=== PATIENT | male | born 1950 | race Caucasian/White ===

== ENCOUNTER → 2016-12-12 | Outpatient (CLI) | payer OTHER ==
--- NOTE | 2016-12-12 11:09 | CONS ---
DATE OF CONSULTATION: 12/12/2016 CONSULTATION/NEW PATIENT EVALUATION A 66-year-old gentleman who has been evaluated in the sleep center for possible obstructive sleep apnea-hypopnea syndrome. HISTORY OF PRESENT ILLNESS/SLEEP-WAKE EVALUATION: SLEEP SCHEDULE: Patient's usual sleep schedule from around 9:30 to 10 p.m. until 6 a.m. FALLING ASLEEP: Some he has problem with falling asleep, using Ambien 10 mg at bedtime on p.r.n. basis. DURING SLEEP: During the night, according to his , he snores and has episodes of stopped breathing during the sleep. He wakes up from sleep up to 6 times with 2 episodes of nocturia even if he is taking his Ambien. DURING THE DAY/WAKE STATE: In the morning he wakes up tired. He feels sleepy during the day. [place] Sleepiness Scale significantly increased to 14. He takes nap once a day at noon time even after taking 2 coffees in the morning. He sleeps in different positions. He has a TV set in bedroom. Moving during the sleep. No history of hypnagogic hallucinations, sleep paralysis or cataplexy. PAST MEDICAL HISTORY: Positive for hypertension, hyperlipidemia, facial nerve problems with several surgeries related to that, basal cell carcinoma of the face, have been removed from the right side of the nose several times. PAST SURGICAL HISTORY: Bilateral total shoulder replacement. SOCIAL HISTORY: Negative for smoking. Alcohol consumption occasional. MEDICATIONS: Baby aspirin, lisinopril hydrochlorothiazide, atorvastatin, zolpidem. REVIEW OF SYSTEMS: Positive for excessive daytime sleepiness, multiple awakenings from sleep, asymmetry of his face. No fevers. No double vision. No recent chest pain. No shortness of breath. No abdominal pain. No bleeding episodes. No blood in urine. No seizure episodes. FAMILY HISTORY: Hypertension, heart problems, hyperlipidemia, cancer. PHYSICAL EXAMINATION: During physical exam, a gentleman without distress. VITAL SIGNS: BP 134/77, HR 74, RR 16. Height 5 feet 10 inches. Weight 280. BMI 40. Neck 19 inches in circumference. Temperature 98.7, oxygen saturation at room air 95%. HEENT: PERRLA, EOMI. Evaluation of oropharynx low position of soft palate. Nose asymmetric, possibly nasal septum deviation. Slight restriction of nasal breathing. Some asymmetry of the face NECK: Supple. No JVD. Thyroid is not palpable. LUNGS: Clear to percussion and to auscultation. Good air exchange. No wheezing or rhonchi. HEART: S1, S2 regular. No murmurs, gallops or rubs. ABDOMEN: Obese. EXTREMITIES: No clubbing or cyanosis. CONSULTING IT ARCHITECT: Awake, alert, and oriented x3. Cranial nerves 2 to 7 intact. There is no fasciculation or atrophy noted. No focal deficits observed. IMPRESSION: 1. Snoring, witnessed episodes of stopped breathing during sleep, low position of soft palate, multiple awakenings from sleep with nocturia, excessive daytime sleepiness, [place] Sleepiness Scale increased to 14, big neck, obstructive sleep apnea-hypopnea syndrome. 2. Hypertension. 3. Hyperlipidemia. 4. Difficulties to initiate sleep psychophysiological insomnia. 5. History of microvascular depression of facial nerve. 6. Status post basal cell carcinoma of face skin removed several times. 7. Obesity, body mass index 40. 8. Status post appendectomy. 9. Status post bilateral shoulder replacement. PLAN: 1. Polysomnography for evaluation of patient's breathing during sleep. 2. CPAP/BiPAP titration if sleep study confirms obstructive sleep apnea-hypopnea syndrome. 3. Preferable position during sleep on the side. 4. No driving if patient feels any sleepiness. Patient is aware of civil and criminal liability for unsafe driving. 5. I will see patient for follow-up visit to explain results of the testing and following plan. Thank you very much for referring this patient for consultation. Sincerely, Arturo Eddy MD, PhD, FAASM. Diplomat of [place] [employer], Sleep Medicine Board by [place] [employer] [place] [employer] Housing Coordinator of [facility] [place]
== END | disposition home or self-care (01) ==
LOC: SLEEP 09:50
PROVIDERS: ATTEND Internal Medicine
DX: G47.33 Obstructive sleep apnea (adult) (pediatric) (principal); I10 Essential (primary) hypertension; E78.5 Hyperlipidemia, unspecified; E66.9 Obesity, unspecified; Z68.41 Body mass index [BMI] 40.0-44.9, adult; Z98.890 Other specified postprocedural states; Z96.612 Presence of left artificial shoulder joint; Z96.611 Presence of right artificial shoulder joint; Z85.828 Personal history of other malignant neoplasm of skin
CPT/HCPCS: 99211

== ENCOUNTER → 2021-09-07 | Outpatient (CLI) | payer OTHER ==
--- NOTE | 2021-09-08 02:06 | MR ---
EXAMINATION TYPE: MR lumbar spine wo con DATE OF EXAM: 09/07/2021 COMPARISON: None HISTORY: LBP, LLE radiculopathy. Multiplanar multiecho imaging of the lumbar spine without contrast. Normal alignment. There is narrowing of L4-5 disc space. There is no compression fracture. The other disc spaces are normal. There is mild posterior and anterior disc herniations at L4-5. There is devel opmentally adequate spinal canal. No spinal stenosis. There is some hypertrophic facet arthropathy at L4-5. There is some facet arthropathy and mild neural foraminal narrowing bilaterally at L5-S1. Ther e is no lumbar paraspinal mass. IMPRESSION: Spondylosis at L4-5. No spinal stenosis. Mild neural foraminal narrowing at L5 5 S1. No fracture.
== END | disposition home or self-care (01) ==
LOC: RADMRIMAIN 18:46
PROVIDERS: ATTEND Orthopaedic Surgery
DX: M47.26 Other spondylosis with radiculopathy, lumbar region (principal)
CPT/HCPCS: 72148

== ENCOUNTER 2021-12-07 11:12 | Emergency (ER) | payer OTHER ==
[2021-12-07] MEDS ORDERED: SODIUM CHLORIDE 0.9% 500 ML 500 ML IV STA (13:41)
--- NOTE | 2021-12-07 13:46 | ED ---
General Adult HPI - General Chief complaint: Chest Pain Stated complaint: Chest Pain, Shoulder Pain Time Seen by Provider: 12/07/21 12:59 Source: patient, family Mode of arrival: wheelchair Limitations: no limitations - History of Present Illness Initial comments: Dictation was produced using [employer] dictation software. please excuse any grammatical, word or spelling errors. Chief Complaint: Patient is a 71-year-old male presents to the emergency department for cardiac workup History of Present Illness: Patient is 71-year-old male he presents to the emergency department for concerns of cardiac workup. For the last 2 weeks she's been having shoulder pain and left upper extremity rash. He was seen at urgent cares and at the [facility]. He had prescriptions provided for him for prednisone, analgesics. He was seen again today at the [facility] and was told to come to the [facility] department for cardiac workup. Patient denies any chest pain. States his pain is in his left shoulder left trapezius area. He also has some numbness in his hand. 2 weeks ago he hurt his shoulder doesn't recall how. One week after that patient started to develop a rash. The ROS documented in this emergency department record has been reviewed and confirmed by me. Those systems with pertinent positive or negative responses have been documented in the HPI. All other systems are other negative and/or noncontributory. PHYSICAL EXAM: General Impression: Alert and oriented x3, not in acute distress HEENT: Normocephalic atraumatic, extra-ocular movements intact, pupils equal and reactive to light bilaterally, mucous membranes moist. Cardiovascular: Heart regular rate and rhythm Chest: Able to complete full sentences, no retractions, no tachypnea Abdomen: abdomen soft, non-tender, non-distended, no organomegaly Musculoskeletal: Pulses present and equal in all extremities, no peripheral edema Motor: no focal deficits noted Neurological: CN II-XII grossly intact, no focal motor or sensory deficits noted Skin: Dermatomal distribution, bolus and erythematous rash to the left trapezius extending down to the left posterior arm in a C7 or C6 dermatomal pattern Psych: Normal affect and mood ED course: 71-year-old male presents to the emergency Department from urgent care. Patient was told to come to the ER to get cardiac workup for persistent shoulder pain. Patient is any chest pain. As upon arrival are within acceptable limits. Patient is well-appearing. EKG does not show any signs of ischemia or infarction. at the bedside insistent on patient receiving IV fluids. Patient is a rash that's consistent with herpes zoster. Laboratory evaluation obtained. CBC, coags, metabolic panel within acceptable limits. Troponin is negative. Patient with discharge. Patient is advised to follow up closely with his prior care doctor. Patient prescription for valacyclovir EKG interpretation: Ventricular rate an 10, sinus tachycardia, OR interval 164, QS 93, QTc 385. No OR prolongation, no QTC prolongation, no ST or T-wave changes noted. Overall, this EKG is unremarkable - Related Data Home Medications Medication Instructions Recorded Confirmed Lisinopril-Hctz 10-12.5 mg 1 tab PO HS 02/01/16 12/07/21 [Zestoretic 10-12.5] Aspirin [Adult Low Dose Aspirin EC] 81 mg PO HS 04/26/16 12/07/21 Atorvastatin [Lipitor] 40 mg PO HS 12/07/21 12/07/21 Cholecalciferol [Vitamin D3 (125 125 mcg PO HS 12/07/21 12/07/21 Mcg = 5000 Iu)] Lidocaine 5% Oint [Xylocaine 5% 1 applic TOPICAL QID PRN 12/07/21 12/07/21 Oint] Previous Rx's Medication Instructions Recorded valACYclovir [Valtrex] 1,000 mg PO TID 7 Days #14 tab 12/07/21 Allergies Allergy/AdvReac Type Severity Reaction Status Date / Time No Known Allergies Allergy Verified 12/07/21 14:06 Review of Systems ROS Statement: Those systems with pertinent positive or pertinent negative responses have been documented in the HPI. ROS Other: All systems not noted in ROS Statement are negative. Past Medical History Past Medical History: Hypertension Additional Past Medical History / Comment(s): HX MICRO COMPRESSION OF FACIAL NERVE ON ONE SIDE History of Any Multi-Drug Resistant Organisms: None Reported Past Surgical History: Appendectomy, Joint Replacement, Orthopedic Surgery Additional Past Surgical History / Comment(s): BRAIN SX,HECTOR SHOULDER REPLACEMENT,WRIST OR Past Anesthesia/Blood Transfusion Reactions: No Reported Reaction Past Psychological History: No Psychological Hx Reported Smoking Status: Never smoker Past Alcohol Use History: Heavy - Past Family History Brother(s) Family Medical History: Cancer Additional Family Medical History / Comment(s): LUNG Father Family Medical History: Cancer Mother Family Medical History: Cancer General Exam Limitations: no limitations Course Vital Signs 12/07/21 12/07/21 11:17 13:54 Temperature 97.9 F Pulse Rate 113 H 85 Respiratory 18 18 Rate Blood Pressure 138/94 117/74 O2 Sat by Pulse 94 L 94 L Oximetry Medical Decision Making - Lab Data Result diagrams: 12/07/21 13:37 12/07/21 12:45 Lab Results 12/07/21 12/07/21 12/07/21 Range/Units 12:45 12:45 13:37 WBC 10.9 H (3.8-10.6) k/uL RBC 5.18 (4.30-5.90) m/uL Hgb 16.2 (13.0-17.5) gm/dL Hct 48.7 (39.0-53.0) % MCV 94.1 (80.0-100.0) fL MCH 31.3 (25.0-35.0) pg MCHC 33.3 (31.0-37.0) g/dL RDW 13.7 (11.5-15.5) % Plt Count 287 (150-450) k/uL MPV 7.3 Neutrophils % 84 % Lymphocytes % 8 % Monocytes % 6 % Eosinophils % 1 % Basophils % 0 % Neutrophils # 9.1 H (1.3-7.7) k/uL Lymphocytes # 0.8 L (1.0-4.8) k/uL Monocytes # 0.6 (0-1.0) k/uL Eosinophils # 0.1 (0-0.7) k/uL Basophils # 0.0 (0-0.2) k/uL PT (9.0-12.0) sec INR (<1.2) APTT (22.0-30.0) sec Sodium 135 L (137-145) mmol/L Potassium 4.4 (3.5-5.1) mmol/L Chloride 103 (98-107) mmol/L Carbon Dioxide 18 L (22-30) mmol/L Anion Gap 14 mmol/L BUN 33 H (9-20) mg/dL Creatinine 1.09 (0.66-1.25) mg/dL Est GFR (CKD-EPI)AfAm 79 (>60 ml/min/1.73 sqM) Est GFR (CKD-EPI)NonAf 68 (>60 ml/min/1.73 sqM) Glucose 165 H (74-99) mg/dL Calcium 9.5 (8.4-10.2) mg/dL Magnesium 1.9 (1.6-2.3) mg/dL Total Bilirubin 1.0 (0.2-1.3) mg/dL AST 39 (17-59) U/L ALT 51 H (4-49) U/L Alkaline Phosphatase 67 (38-126) U/L Troponin I <0.012 (0.000-0.034) ng/mL Total Protein 7.7 (6.3-8.2) g/dL Albumin 4.7 (3.5-5.0) g/dL 12/07/21 Range/Units 13:37 WBC (3.8-10.6) k/uL RBC (4.30-5.90) m/uL Hgb (13.0-17.5) gm/dL Hct (39.0-53.0) % MCV (80.0-100.0) fL MCH (25.0-35.0) pg MCHC (31.0-37.0) g/dL RDW (11.5-15.5) % Plt Count (150-450) k/uL MPV Neutrophils % % Lymphocytes % % Monocytes % % Eosinophils % % Basophils % % Neutrophils # (1.3-7.7) k/uL Lymphocytes # (1.0-4.8) k/uL Monocytes # (0-1.0) k/uL Eosinophils # (0-0.7) k/uL Basophils # (0-0.2) k/uL PT 10.2 (9.0-12.0) sec INR 0.9 (<1.2) APTT 22.0 (22.0-30.0) sec Sodium (137-145) mmol/L Potassium (3.5-5.1) mmol/L Chloride (98-107) mmol/L Carbon Dioxide (22-30) mmol/L Anion Gap mmol/L BUN (9-20) mg/dL Creatinine (0.66-1.25) mg/dL Est GFR (CKD-EPI)AfAm (>60 ml/min/1.73 sqM) Est GFR (CKD-EPI)NonAf (>60 ml/min/1.73 sqM) Glucose (74-99) mg/dL Calcium (8.4-10.2) mg/dL Magnesium (1.6-2.3) mg/dL Total Bilirubin (0.2-1.3) mg/dL AST (17-59) U/L ALT (4-49) U/L Alkaline Phosphatase (38-126) U/L Troponin I (0.000-0.034) ng/mL Total Protein (6.3-8.2) g/dL Albumin (3.5-5.0) g/dL Disposition Clinical Impression: [place] Disposition: HOME SELF-CARE Condition: Fair Instructions (If sedation given, give patient instructions): [facility] (ED) Prescriptions: valACYclovir [Valtrex] 1,000 mg PO TID 7 Days #14 tab Is patient prescribed a controlled substance at d/c from ED?: No Referrals: [facility],Clinic [Primary Care Provider] - 1-2 days
[2021-12-07 13:52] LABS: Albumin 4.7 g/dL (3.5-5.0); Calcium 9.5 mg/dL (8.4-10.2); Magnesium 1.9 mg/dL (1.6-2.3); Potassium 4.4 mmol/L (3.5-5.1); Total Protein 7.7 g/dL (6.3-8.2)
[2021-12-07 14:10] LABS: Basophils % (A) 0 %; Eosinophils # (A) 0.1 k/uL (0-0.7); Eosinophils % (A) 1 %; HCT 48.7 % (39.0-53.0); HGB 16.2 gm/dL (13.0-17.5); Lymphocytes # (A) 0.8 k/uL (1.0-4.8); Lymphocytes % (A) 8 %; MCH 31.3 pg (25.0-35.0); MCHC 33.3 g/dL (31.0-37.0); MCV 94.1 fL (80.0-100.0); Mean Platelet Volume 7.3; Monocytes # (A) 0.6 k/uL (0-1.0); Monocytes % (A) 6 %; Neutrophils # (A) 9.1 k/uL (1.3-7.7); Neutrophils % (A) 84 %; Platelet Count 287 k/uL (150-450); RBC 5.18 m/uL (4.30-5.90); RDW 13.7 % (11.5-15.5); WBC 10.9 k/uL (3.8-10.6)
[2021-12-07 14:25] LABS: INR 0.9 (<1.2); Prothrombin Time 10.2 sec (9.0-12.0)
--- NOTE | 2021-12-07 14:27 | XR ---
EXAMINATION TYPE: XR chest 2V DATE OF EXAM: 12/07/2021 COMPARISON: 06/07/2015 TECHNIQUE: PA and lateral views submitted. HISTORY: Chest pain FINDINGS: Subsegmental changes left lung base. No pleural effusion or pneumothorax. Heart size normal. Hypertro phic and degenerative change of the spine. Postsurgical change involving the shoulders. No pneumothor ax. IMPRESSION: 1. Left lower lobe atelectasis favored over pneumonia.
[2021-12-07 15:13] VITALS: BP 117/92; PULSE 77; RESP 16; TEMP 98.8
== END 2021-12-07 15:13 | disposition home or self-care (01) ==
LOC: EC 11:12
DX: B02.9 Zoster without complications (principal); R07.9 Chest pain, unspecified; I10 Essential (primary) hypertension; Z79.899 Other long term (current) drug therapy
CPT/HCPCS: 36415; 71046; 80053; 83735; 84484; 85025; 85610; 85730; 93005; 96360; 99285

== ENCOUNTER → 2023-05-09 | Outpatient (CLI) | payer OTHER ==
--- NOTE | 2023-05-12 10:14 | MR ---
EXAMINATION TYPE: MR Prostate wo/w con DATE OF EXAM: 05/09/2023 9:26 AM COMPARISON: None. CLINICAL INDICATION:Male, 73 years old with history of R97.20 ELEVATED PROSTATE SPECIFIC ANTIGEN; Jazz vated PSA TECHNIQUE: Multi-planar, multi-sequence imaging of the pelvis is performed prior to and following the uncomplicated administration of bolus intravenous gadolinium. CONTRAST: 11.5 Gadavist Interpretive Criteria: PI-RADS v2.1 SERUM PSA: 6.8 on 04/09/2023. SURGICAL PATHOLOGY: No data available. FINDINGS: Prostatic dimensions: 5.2 x 4.1 x 3.2 cm. "Bullet" Volume:44.65 (PSA density=0.15 ng/mL/mL) CENTRAL GLAND (Central and Transition Zones/CZ+TZ): Multiple bilateral, heterogenous appearing hypertrophic stromal nodules, without suspicious lesion. ( PI-RADS 2) PERIPHERAL ZONE (PZ): Bilateral linear, indistinct wedgelike areas of low ADC, and low T2 signal, No evidence of masslike a bnormality, or localized perfusional hypervascularity, to further suggest a focus of clinically signi ficant prostate cancer. (PI-RADS 2) SEMINAL VESICLES (SV): Symmetric and unremarkable. PERIPROSTATIC TISSUES: Unremarkable. LYMPH NODES: No enlarged pelvic lymph node. REMAINING PELVIS: Bladder wall is within normal limits given distention. No abnormal free or organized intrapelvic fluid collection. No pathologic bowel dilation or mural thickening. Right inguinal hernia containing that right testis. Fat-containing left inguinal hernia. OSSEOUS STRUCTURES: No suspicious osseous abnormality. IMPRESSION: 1. No specific features for high-risk prostate cancer. Maximum PI-RADS score: 2. 2. Mild BPH, estimated gland volume 44.65 mL.
== END | disposition home or self-care (01) ==
LOC: RADMRIMAIN 07:49
PROVIDERS: ATTEND Urology
DX: N40.0 Benign prostatic hyperplasia without lower urinary tract symptoms (principal); R97.20 Elevated prostate specific antigen [PSA]
CPT/HCPCS: 72197; A9585

== ENCOUNTER → 2024-07-14 | Outpatient (CLI) | payer OTHER ==
--- NOTE | 2024-07-14 09:39 | MR ---
EXAMINATION TYPE: MR Prostate wo/w con DATE OF EXAM: 07/14/2024 8:25 AM COMPARISON: 05/26/2023 CLINICAL INDICATION: Male, 74 years old with history of C61 PROSTATE CX; prostate ca TECHNIQUE: Multi-planar, multi-sequence imaging of the pelvis is performed prior to and following the uncomplicated administration of bolus intravenous gadolinium. IV Contrast: 11 mL Gadobutrol Interpretive Criteria: PI-RADS v2.1 SERUM PSA: 01/2024=7.48 03/2024=9.25 SURGICAL PATHOLOGY: Biopsy 06/09/2024 positive. FINDINGS: Prostatic dimensions: 5.0 x 5.0 x 3.4 cm. "Bullet" Volume:55.63 (PSA density=0.17 ng/mL/mL) CENTRAL GLAND (Central and Transition Zones/CZ+TZ): Multiple bilateral, heterogenous appearing hypertrophic stromal nodules, without suspicious lesion. M edian lobe hypertrophy with protrusion into the base of the bladder. (PI-RADS 2) PERIPHERAL ZONE (PZ): Intrinsic high T1 signal seen throughout the peripheral zone bilaterally possibly secondary to sequel a prior biopsy. Diffuse low T2/higher T1 signal throughout the peripheral zone unclear if there is in jection malfunction. The right peripheral gland somewhat T2 low signal (PI-RADS 3) SEMINAL VESICLES (SV): Symmetric and unremarkable. PERIPROSTATIC TISSUES: Unremarkable. LYMPH NODES: No enlarged pelvic lymph node. REMAINING PELVIS: Bladder wall is within normal limits given distention. No abnormal free or organized intrapelvic fluid collection. No pathologic bowel dilation or mural thickening. No hernia visualized Fatty changes to the inguinal canals with right testis in the right inguinal canal. OSSEOUS STRUCTURES: No suspicious osseous abnormality. IMPRESSION: 1. Diffuse low T2/higher T1 signal throughout the right peripheral zone without associated. Maximum P I-RADS score: 3 by imaging criteria. Findings correlate with area of the positive biopsy. 2. Moderate BPH, estimated gland volume 55.63 mL. 3. No suspicious osseous lesion. No lymphadenopathy. No evidence of prostate adenocarcinoma involving the periprostatic tissues. 4. Fatty changes to the inguinal canals with right testis in the right inguinal canal. [facility], , 07/14/2024 9:37 AM
== END | disposition home or self-care (01) ==
LOC: RADMRIMAIN 06:49
PROVIDERS: ATTEND Urology
DX: N40.0 Benign prostatic hyperplasia without lower urinary tract symptoms (principal); N50.89 Other specified disorders of the male genital organs
CPT/HCPCS: 72197; A9585

== ENCOUNTER → 2024-08-05 | Outpatient (CLI) | payer OTHER ==
--- NOTE | 2024-08-08 21:23 | PE ---
EXAMINATION TYPE: PET CT fusion skull to thigh DATE OF EXAM: 08/06/2024 COMPARISON: MRI 07/14/2024 Prior PET/CT: No prior PET/CT at this location CLINICAL INDICATION: Male, 74 years old with history of C61 Prostate CA, TECHNIQUE: Following the intravenous administration of 6.40 mCi of Gallium-68 labeled PSMA, whole latanya dy images are performed from the skull base to the midthigh. Images are reviewed on the computer in the coronal, axial, and sagittal planes. Reconstructed rotating images are created on [employer] and reviewed on the computer. A localization and attenuation correction CT is performed i n conjunction with the PET scan. DLP: 1147.87 mGycm SCAN: Subsequent FINDINGS: NECK: There is normal radiotracer distribution through salivary glands. No suspicious uptake THORAX: No suspicious uptake ABDOMEN:There is normal radiotracer excretion through the renal collecting system. Normal uptake wit hin the liver and spleen. PELVIS: No suspicious uptake. Urinary bladder fills with contrast renal excretion. Tiny amount of right posterior prostate uptake may be present. This may be the patient's primary, exa mple image 268, SUV 14.6 OSSEOUS STRUCTURES: No suspicious uptake LOCALIZATION CT: No significant interval finding COMPARISON: The posterior right prostate uptake may be the region indicated by MRI IMPRESSION: 1. No suspicious changes to suggest metastatic disease. 2. Possible prostate primary may be along the right posterior margin. [facility], , 08/08/2024 9:21 PM
== END | disposition home or self-care (01) ==
LOC: RADPETMAIN 14:20
PROVIDERS: ATTEND Radiology Radiation Oncology
DX: C61 Malignant neoplasm of prostate (principal)
CPT/HCPCS: 78815; A9596

== ENCOUNTER → 2024-10-21 | Outpatient (CLI) | payer OTHER ==
[2024-10-21 19:18] LABS: Prostate Specific Antigen 0.06 ng/mL (0.000-6.500); Testosterone <10.00 ng/dL (86.98-780.10)
== END | disposition home or self-care (01) ==
LOC: LABWHC1 14:03
PROVIDERS: ATTEND Radiology Radiation Oncology
DX: C61 Malignant neoplasm of prostate (principal)
CPT/HCPCS: 36415; 84153; 84403

== ENCOUNTER → 2025-01-11 | Outpatient (CLI) | payer OTHER | END | disposition home or self-care (01) | LOC: LABWHC1 10:02 | PROVIDERS: ATTEND Radiology Radiation Oncology | DX: C61 Malignant neoplasm of prostate (principal) | CPT/HCPCS: 36415; 84153 ==